=== PATIENT | female | born 1990 | race Caucasian/White ===

== ENCOUNTER 2023-03-02 05:30 | Inpatient (IN) | payer BC ==
[2023-03-02] MEDS ORDERED: Ibuprofen 800 MG TAB PO PRN (07:10)
[2023-03-02] MEDS ORDERED: Lidocaine 1% (PF) 30 ML VIAL SC PRN (07:10)
[2023-03-02] MEDS ORDERED: NS w/ Oxytocin 30 units 500 ML IV SCH ×2 (07:10)
[2023-03-02] MEDS ORDERED: Lactated Ringer's 1,000 ML IV SCH (07:10)
[2023-03-02] MEDS ORDERED: Promethazine HCl 25 MG/ML VIAL IM PRN ×2 (07:10→10:43)
[2023-03-02] MEDS ORDERED: hydrALAZINE 20 MG/ML VIAL SLOW IVP PRN ×2 (07:10→16:34)
[2023-03-02] MEDS ORDERED: Butorphanol Tartrate 1 MG/ML VIAL SLOW IVP PRN (07:10)
[2023-03-02] MEDS ORDERED: HYDROcodone/Acetaminophen 5/325 mg Tablet PO PRN ×4 (07:10→16:34)
[2023-03-02] MEDS ORDERED: Ondansetron PF 4 MG/2 ML Vial IVP PRN ×3 (07:10→16:34)
[2023-03-02 07:58] LABS: Hemoglobin 12.6 g/dL (12.0-15.5); Mean Corpuscular HGB CONC 33.6 g/dL (32.0-36.0); Mean Corpuscular Hemoglobin 29.2 pg (27.0-33.0); Mean Corpuscular Volume 86.8 fl (81.6-98.3); Mean Platelet Volume 10.2 fl (7.4-10.4); Platelet Count 267 10x3/uL (150-450); RBC Distribution Width 12.9 % (11.5-14.5); Red Blood Cell (RBC) Count 4.32 10x6/uL (3.90-5.03); White Blood Cell (WBC) Count 6.6 10x3/uL (3.5-10.5)
[2023-03-02 08:28] LABS: Syphilis Antibody Nonreactive (Nonreactive); Syphilis Antibody Index 0.06 S/CO (<1.00 Non-Reactive)
[2023-03-02 08:29] LABS: HBSAg Index 0.16 S/CO (0-0.99); Hep B Surf Ag - L&D Non-Reactive S/CO (NonReactive)
[2023-03-02 08:36] VITALS: BMI 26.1
[2023-03-02] MEDS ORDERED: Fentanyl 2 mcg/Bup 0.1% Cadd 100 ML ONE (09:47)
[2023-03-02] MEDS ORDERED: Acetaminophen 325 MG TAB PO PRN (10:43)
[2023-03-02] MEDS ORDERED: diphenhydrAMINE 50 MG/ML VIAL IVP PRN (10:43)
[2023-03-02] MEDS ORDERED: Naloxone HCl 0.4 mg/ml Vial IVP PRN ×2 (10:43)
[2023-03-02] MEDS ORDERED: Lactated Ringer's 500 ML IV PRN (10:43)
[2023-03-02] MEDS ORDERED: Moisturizing Cream (Eucerin) 113 GM JAR TOP PRN (10:43)
[2023-03-02] MEDS ORDERED: ePHEDrine Sulfate 50 MG/10 ML VIAL SLOW IVP PRN (10:43)
[2023-03-02] MEDS ORDERED: Fentanyl 2 mcg/Bupivacaine 0.1% Cassette 100 ML EPIDURAL SCH (10:45)
[2023-03-02] MEDS ORDERED: Communication Order-Pharmacy FS SCH (10:45)
[2023-03-02] MEDS ORDERED: Preparation H Ointment 28 GM TUBE PR PRN (16:34)
[2023-03-02] MEDS ORDERED: diphenhydrAMINE 25 MG CAP PO PRN (16:34)
[2023-03-02] MEDS ORDERED: Boostrix 0.5 ML (Tdap) VIAL (>/=7 yrs of age) IM ONE (16:34)
[2023-03-02] MEDS ORDERED: Bisacodyl 10 MG SUPP PR PRN (16:34)
[2023-03-02] MEDS ORDERED: Benzocaine-Menthol 82.5 ML CAN TOP PRN (16:34)
[2023-03-02] MEDS ORDERED: Milk Of Magnesia 30 ML UDCUP PO PRN (16:34)
[2023-03-02] MEDS: Ferrous Sulfate 325 MG TAB PO SCH (20:46)
[2023-03-02] MEDS: Docusate 100 MG CAP PO SCH (21:07)
[2023-03-02] MEDS: Ibuprofen 800 MG TAB PO SCH ×2 (21:13→22:20)
[2023-03-03] MEDS: Ibuprofen 800 MG TAB PO SCH ×2 (06:12→13:35)
[2023-03-03] MEDS: Ferrous Sulfate 325 MG TAB PO SCH (07:30)
[2023-03-03] MEDS: Docusate 100 MG CAP PO SCH (08:51)
[2023-03-03] MEDS ORDERED: Prenatal Vitamin 1 TAB PO SCH (09:00)
[2023-03-03 11:16] VITALS: BP 118/66; TEMP 99
== END 2023-03-03 18:22 | disposition home or self-care (01) | DRG 807 ==
LOC: CSHLD 06:51 → CSHPP 16:45
PROVIDERS: ADMIT Obstetrics & Gynecology; ATTEND Obstetrics & Gynecology
PROC: 10E0XZZ Delivery of Products of Conception, External Approach (ICD-10-PCS; principal; 2023-03-02)
PROC: 10907ZC Drainage of Amniotic Fluid, Therapeutic from Products of Conception, Via Natural or Artificial Opening (ICD-10-PCS; 2023-03-02)
PROC: 0HQ9XZZ Repair Perineum Skin, External Approach (ICD-10-PCS; 2023-03-02)
DX: O24.420 Gestational diabetes mellitus in childbirth, diet controlled (principal); Z37.0 Single live birth; Z3A.39 39 weeks gestation of pregnancy; O34.211 Maternal care for low transverse scar from previous cesarean delivery; O70.0 First degree perineal laceration during delivery
CPT/HCPCS: 36415; 51702; 85027; 86780; 86850; 86900; 86901; 87340

== ENCOUNTER 2023-03-27 04:58 | Emergency (ER) | payer BC ==
[2023-03-27 06:37] LABS: #Basophils 0.1 10x3/uL (0.0-0.2); #Eosinphils 0.1 10x3/uL (0.0-0.5); #Monocytes 0.3 10x3/uL (0.0-1.1); #Neutrophils 8.1 10x3/uL (1.5-8.4); %Basophils 0.6 % (0.0-2.0); %Eosinophils 1.3 % (0.0-6.0); %Lymphocytes 12.8 % (18.0-47.0); %Monocytes 3.3 % (0.0-10.0); %Neutrophils 81.7 % (40.0-75.0); Hemoglobin 14.5 g/dL (12.0-15.5); Mean Corpuscular Hemoglobin 28.6 pg (27.0-33.0); Mean Corpuscular Volume 86.8 fl (81.6-98.3); Mean Platelet Volume 9.2 fl (7.4-10.4); Platelet Count 324 10x3/uL (150-450); Red Blood Cell (RBC) Count 5.07 10x6/uL (3.90-5.03); White Blood Cell (WBC) Count 9.9 10x3/uL (3.5-10.5)
[2023-03-27 06:55] LABS: ALT (SGPT) 82 U/L (8-55); AST (SGOT) 54 U/L (5-34); Albumin 4.2 g/dL (3.5-5.0); Alkaline Phosphatase 98 U/L (40-110); Anion Gap 16 mmol/L (10-20); BUN (Urea Nitrogen) 13 mg/dL (7.0-18.7); Bilirubin, Total 0.5 mg/dL (0.2-1.2); Calc. Creatinine Clearance 0 mL/min (70-130); Calcium 9.2 mg/dL (7.8-10.44); Carbon Dioxide 22 mmol/L (22-29); Chloride 106 mmol/L (98-107); Estimated GFR 119; Globulin 3.1 g/dL (2.4-3.5); Glucose 111 mg/dL (70-105); Lipase 54 U/L (8-78); Protein, Total 7.3 g/dL (6.0-8.3); Sodium 140 mmol/L (136-145)
[2023-03-27 07:06] LABS: Bilirubin Neg (Negative); Blood, Urine 250 (Negative); Clarity Clear (Clear); Glucose, Urine (Dipstick) Normal (Negative); Ketone, Urine Negative (Negative); Leukocyte 100 (Negative); Nitrite Negative (Negative); Protein, Urine (Dipstick) Negative (Neg-Trace); Urobilinogen Normal mg/dL (Less than 2)
[2023-03-27 07:14] LABS: Bacteria/HPF Rare-Few HPF (None Seen); Squamous Epithelial 0-3 HPF (0-3); WBC/HPF 0-3 HPF (0-3)
== END 2023-03-27 09:10 | disposition home or self-care (01) ==
LOC: CSHERS 04:58
DX: O99.63 Diseases of the digestive system complicating the puerperium (principal); K80.20 Calculus of gallbladder without cholecystitis without obstruction
CPT/HCPCS: 74176; 80053; 81003; 81015; 83690; 85025